=== PATIENT | male | born 1950 | race Caucasian/White ===

== ENCOUNTER 2022-11-20 13:54 | Outpatient (CLI) | payer MEDICARE, OTHER | END 2022-11-20 13:55 | disposition home or self-care (01) | LOC: BURRAD 13:54 | PROVIDERS: ATTEND Family Medicine | DX: M25.561 Pain in right knee (principal) ==

== ENCOUNTER 2023-02-03 15:23 | Outpatient (CLI) | payer MEDICARE, OTHER | END 2023-02-03 15:24 | disposition home or self-care (01) | LOC: BURRAD 15:23 | PROVIDERS: ATTEND Family Medicine | DX: R05.3 Chronic cough (principal) | CPT/HCPCS: 71046 ==